=== PATIENT | female | born 1960 | race Caucasian/White ===

== ENCOUNTER → 2016-08-27 | Outpatient (CLI) | payer BC ==
--- NOTE | ~2016-08-27 | US85 ---
[facility] A Service of [facility] RADIOLOGY TEXT RESULTS PATIENT: ARMANI MANUEL LOCATION: CNIV : 58 UNIT #: [id number] AGE: [address]: Bandar Cortez MD SEX: F ORDER DR: [id number] [facility]. [place], [place] [address] [id number] O MR#: [id number] Acc #: [id number] NAME: ARMANI MANUEL : 1960 SEX: F STUDY DATE/TIME: 08/27/2016 13:36 UNIT: CNIV ROOM: STUDY DESCRIPTION: [facility] Attending Physician: Bandar Cortez M.D. Referring Physician: Bandar Cortez M.D. Ordering Physician: Bandar Cortez M.D. Primary Care Physician: Bandar Cortez M.D. MEDICAL IMAGING REPORT This report is preliminary unless electronic signature is present EXAM Unilateral left lower extremity venous Doppler. DATE 08/27/16 HISTORY Left leg pain and swelling for 1 month. TECHNIQUE Venous ultrasound examination of the left lower extremity was performed using grayscale, spectral Doppler and color flow Doppler imaging. FINDINGS The examination is negative. There is no evidence of left lower extremity deep venous thrombus from the groin to the lower calf. Visualized greater saphenous vein is also patent. IMPRESSION Negative examination. No evidence of left lower extremity DVT. Dictated by... Abhi Rodney M.D. THIS IS AN ELECTRONICALLY VERIFIED REPORT Abhi Rodney M.D. at 08/28/2016 10:46 PM Eloise [facility] A Service [facility] RADIOLOGY TEXT RESULTS PATIENT: ARMANI MANUEL LOCATION: CNIV : 58 UNIT #: [id number] AGE: [address]: Bandar Cortez MD SEX: F ORDER DR: TD: 08/27/2016 17:40 JOB #: [id number] MEDICAL IMAGING REPORT Page 1 of 1 COPY
== END | disposition home or self-care (01) ==
LOC: CNIV 12:56
DX: M79.662 Pain in left lower leg (principal)
CPT/HCPCS: 93971

== ENCOUNTER → 2016-11-23 | Outpatient (CLI) | payer BC ==
--- NOTE | ~2016-11-23 | CR71 ---
[facility] A Service of [facility] RADIOLOGY TEXT RESULTS PATIENT: ARMANI MANUEL LOCATION: [facility] : 58 UNIT #: [id number] AGE: [address]: Derrick Spence MD SEX: F ORDER DR: [id number] [facility] [address] [place], [place] [address] [id number] O MR#: [id number] Acc #: [id number] NAME: ARMANI MANUEL : 1960 SEX: F STUDY DATE/TIME: 11/23/2016 10:05 UNIT: [facility] ROOM: STUDY DESCRIPTION: CR Chest Single View Attending Physician: Derrick Spence M.D. Referring Physician: Derrick Spence M.D. Ordering Physician: Derrick Spence M.D. Primary Care Physician: Bandar Cortez M.D. MEDICAL IMAGING REPORT This report is preliminary unless electronic signature is present EXAM Portable chest 11/23/2016 HISTORY Shortness of breath, dyspnea for 1 month. Benign essential hypertension. Smoking history. FINDINGS A single AP portable view of the chest shows both lungs to be clear. The heart is normal in size. The mediastinal contour is normal. No significant bone abnormalities are seen. IMPRESSION Normal portable chest. Dictated by... Nathaniel Moe M.D. THIS IS AN ELECTRONICALLY VERIFIED REPORT Nathaniel Moe M.D. at 11/26/2016 7:46 AM SISSY/krystal TD: 11/24/2016 08:13 JOB #: [id number] MEDICAL IMAGING REPORT Page 1 of 1 COPY
== END | disposition home or self-care (01) ==
LOC: CRC 11-08 09:00
DX: R06.00 Dyspnea, unspecified (principal)
CPT/HCPCS: 71010; 94060; 94726; 94729